=== PATIENT | male | born 1995 | race Caucasian/White ===

== ENCOUNTER 2016-04-25 10:45 | Day surgery (SDC) | payer OTHER ==
[~2016-04-25] VITALS: Ht 185.4 cm; Wt 117.0 kg
[2016-04-25] MEDS ORDERED: LAMICTAL200 MG PO (11:36)
[2016-04-25] MEDS ORDERED: BENADRYL50 M1 PO (11:36)
[2016-04-25] MEDS ORDERED: RISPERIDONE3 MG PO (11:36)
[2016-04-25] MEDS ORDERED: XANAX1 MG PO (11:36)
[2016-04-25] MEDS ORDERED: fentaNYL 0.05 MG/ML VIAL ONE (12:19)
[2016-04-25] MEDS ORDERED: MIDAZOLAM 2 MG/2 ML VIAL ONE ×2 (12:19→13:13)
[2016-04-25] MEDS ORDERED: LIDOCAINE 2% 100 MG/5 ML UJET TP ONE (12:19)
== END 2016-04-25 14:10 | disposition home or self-care (01) ==
LOC: MDS 10:45 → MMU 10:46 → MDS 14:10
PROVIDERS: ATTEND Internal Medicine Gastroenterology
DX: K31.7 Polyp of stomach and duodenum (principal); K44.9 Diaphragmatic hernia without obstruction or gangrene; K29.70 Gastritis, unspecified, without bleeding; K20.9 Esophagitis, unspecified; E66.09 Other obesity due to excess calories
CPT/HCPCS: 43239; 45380; J2250; J3010; J7030